=== PATIENT | female | born 2005 | race Caucasian/White ===

== ENCOUNTER 2025-05-22 19:11 | Emergency (ER) | payer OTHER, SELFPAY ==
--- NOTE | 2025-05-22 19:30 | ED_ITS ---
HPI - URI/Sore Throat General Chief Complaint: Upper Respiratory Symptoms Stated Complaint: Sore throat Time Seen by Provider: 05/22/25 22:12 Source: patient Limitations: no limitations History of Present Illness ED Provider: Suma Montalvo PA-C HPI Narrative: 20-year-old female who is otherwise healthy presents with pharyngitis x1 week. Associated left-sided ear pain with subjective fevers. Associated nasal congestion with postnasal drip. Patient states she was seen at outside facility, she was tested for strep throat, the testing was negative. Related Data Previous Rx's ?Medication ?Instructions ?Recorded amoxicillin 500 mg capsule 500 mg PO Q12H #19 caps 10/12 Allergies Allergy/AdvReac Type Severity Reaction Status Date / Time No Known Allergies Allergy Verified 05/22/25 19:33 Review of Systems 2 Review of Systems: Yes all other systems are reviewed and are negative Constitutional: Constitutional: Denies fatigue and Denies fever(s) ENT: Reports sore throat Cardiovascular: Cardiovascular: Denies chest pain and Denies dyspnea Respiratory: Respiratory: Denies cough and Denies dyspnea Endocrine: Endocrine: Denies fatigue [facility] Past Medical History Attestation statement: The following information was validated with the patient. Social History Social History Smoked in Last 30 Days: No Use of substances other than those prescribed or required for medical reasons: No Advance Directives: No Advance Directives Information Provided: No Physical Exam 2 Vital Signs: Vital Signs: Last Vital Signs Temp 98.2 F 05/23/25 00:52 Pulse 101 H 05/23/25 00:52 Resp 16 05/23/25 00:52 BP 120/79 05/23/25 00:52 Pulse Ox 97 05/23/25 00:52 O2 Del Method Room Air 05/23/25 00:52 BMI result Body Mass Index 36.6 Const: Other: Alert Orientation/consciousness: patient oriented x3 HEENT: Other: OP erythematous with the overlying exudate, tonsils are swollen, no trismus no drooling no sublingual fluctuance no swelling inferior to the jawline, the left TM is dull, bulging with the overlying erythema, tragal tenderness noted Neck: Other: Anterior cervical lymphadenopathy Resp: Effort & Inspection: normal respiratory effort Cardio: Other: Normal peripheral perfusion Skin: Other: Warm dry no rash Neuro: General: patient oriented x3, gait normal, no focal motor deficits and CN's II-XI intact bilaterally Psych: Other: Cooperative Course Course Course Narrative: This is a Rapid Medical Exam performed in triage by Lilli Castro PA-C. Full HPI, ROS and PE to be performed by primary ED provider. 20 yo F presenting to the ED c/o left sided throat pain x1 week. states pain is worsening. Was neagtive for strep 4-5 days ago at another hospital - has been taking Tylenol/Motrin w/o relief. +painful swallowing PE: talking in complete sentences. +tachycardic, +b/l tonsilar swelling/erythema and exudates, uvula midline Plan: EKG, labs, viral testing, rapid strep Medications Administered Discontinued Medications Generic Name Dose Route Start Last Admin Trade Name Juwan PRN Reason Stop Dose Admin Amoxicillin 500 mg 05/22/25 22:59 05/22/25 23:10 Amoxicillin 500 Mg Capsule PO 05/22/25 23:00 500 mg ONCE ONE Administration Dexamethasone Sodium Phosphate 10 mg 05/22/25 22:12 05/22/25 22:23 Dexamethasone Sod Phosphate 10 Mg/Ml Vial IVPUSH 05/22/25 22:13 10 mg ONCE ONE Administration Sodium Chloride 1,000 mls @ 999 mls/hr 05/22/25 22:15 05/23/25 00:29 Ns IV 05/22/25 23:15 Infused .Q1H1M CHENTE Infusion Ketorolac Tromethamine 15 mg 05/22/25 22:12 05/22/25 22:23 Ketorolac Tromethamine 15 Mg/Ml Vial IVPUSH 05/22/25 22:13 15 mg ONCE ONE Administration Medical Decision Making Medical Decision Making [facility] Narrative: 20-year-old female who is otherwise healthy presents with pharyngitis x1 week. Associated left-sided ear pain with subjective fevers. Associated nasal congestion with postnasal drip. Patient states she was seen at outside facility, she was tested for strep throat, the testing was negative. No chronic issues History: Per patient I have considered the following differential diagnoses: Strep pharyngitis, viral syndrome, om, OE, serous otitis, PROCESS MECHANIC, RPA, Trent angina, mononucleosis Plan: Viral panel and strep screen ordered from triage, the studies are negative. I will screened for mono. She has at this point a significant tonsillitis, she also has evidence of otitis media, we will be treating her with antibiotic. Giving a dose of Decadron for her swelling of the tonsils. To note there were no exam findings consistent with RPA or PROCESS MECHANIC, certainly not Trent angina. I have independently reviewed the following tests: Labs: Viral panel negative, strep screen negative, mono negative, leukocytosis, not anemic, no electrolyte abnormality, CRP elevated slightly Differential Diagnosis Differential Diagnoses: The differential diagnosis associated with the presentation includes See medical decision-making Admission/Observation Consideration of admission/observation: Escalation of care including admission/observation considered Not applicable Lab Data MDM Lab Attestation statement: I reviewed the patient's lab results. 05/22/25 20:22 05/22/25 20:22 Labs: Lab Results 05/22/25 05/22/25 05/22/25 Range/Units 20:21 20:22 22:45 WBC 14.9 H (4.8-10.8) X10*3/uL RBC 5.21 (4.20-5.50) X10*6/uL Hgb 14.6 (12.0-16.0) g/dl Hct 44.2 (37.0-47.0) % MCV 84.8 (80.0-98.0) fL MCH 28.0 (27.0-33.0) pg MCHC 33.0 (31.0-35.0) g/dl RDW 12.5 (11.0-16.0) % Plt Count 322 (160-400) X10*3/uL MPV 9.2 L (9.4-12.3) fL Immature Gran % (Auto) 0.7 H (0.0-0.4) % Neut % (Auto) 75.8 H (45-73) % Lymph % (Auto) 15.0 L (20-40) % [place] % (Auto) 7.6 (2-11) % Eos % (Auto) 0.7 (0-4) % Baso % (Auto) 0.2 (0-2) % Lymph # (Auto) 2.2 (1.2-4.9) X10*3/uL [place] # (Auto) 1.1 (0.1-1.2) X10*3/uL Eos # (Auto) 0.1 (0.0-0.4) X10*3/uL Baso # (Auto) 0.0 (0.0-0.2) X10*3/uL Abs Immat Gran (auto) 0.10 H (0.00-0.03) X10*3/uL Absolute Neuts (auto) 11.3 H (2.0-8.3) x10*3/uL Absolute Nucleated RBC 0.000 (0.0-0.012) X10*3/uL Nucleated RBC % (auto) 0.0 (0.0-0.2) /100WBC ESR 14 (0-20) MM/HR Sodium 140 (135-145) mmol/L Potassium 4.2 (3.3-5.1) mmol/L Chloride 102 (96-108) mmol/L Carbon Dioxide 27 (22-29) mmol/L Anion Gap 15 (12-20) BUN 16 (9-16) mg/dL Creatinine 0.68 (0.5-1.4) mg/dL Estim Creat Clear Calc 112.2 Estimated GFR > 60 Random Glucose 101 (60-115) mg/dL Calcium 9.9 (8.4-10.2) mg/dL C-Reactive Protein 1.21 H (< or = 0.50) mg/dL COVID-19 (SURYA) Negative (Negative) COVID-19 Clin Com See Note Monoscreen Negative (Negative) Influenza Type A (BERNADINE) Negative (Negative) Influenza Type B (BERNADINE) Negative (Negative) Influenza A & B Note See Note S. pyogenes GrpA BERNADINE Negative (Negative) Discharge Plan Discharge Clinical Impression: Acute left otitis media, Acute tonsillitis Patient Disposition: Home, Self-Care Instructions: Ear Infection (ED), Tonsillitis (ED) Additional Instructions: You were again tested for strep throat, the test was negative. You were also tested for COVID and influenza, the viral panel was negative. We tested you for mononucleosis, that test was negative. You are being treated for tonsillitis, and a left-sided ear infection. See home care instructions. Take the amoxicillin as directed, be sure to complete the course of this antibiotic. Continue to follow up with your primary care provider as needed. Prescriptions: New amoxicillin 500 mg capsule 500 mg PO Q12H Qty: 19 0RF Interventions: ED Discharge Assessment Last Done: 05/23/25 00:52 Discharge Date/Time: 05/23/25 00:53 Print Language: Eritrean
[2025-05-22 19:32] VITALS: BP 147/91; PULSE 132; RESP 20; TEMP 36.7; O2SAT 98; BMI 36.6
--- NOTE | 2025-05-22 19:33 | ECG_ITS ---
Test Reason : CHEST PRESSURE, SOB Blood Pressure : */* mmHG Vent. Rate : 122 BPM Atrial Rate : 122 BPM P-R Int : 138 ms QRS Dur : 72 ms QT Int : 310 ms P-R-T Axes : 52 -9 40 degrees QTcB Int : 441 ms Sinus tachycardia Inferior infarct , age undetermined Cannot rule out Anterior infarct , age undetermined Abnormal ECG No previous ECGs available Referred By: Lilli Castro Electronically Signed By: Figueroa Saunders
[2025-05-22 20:29] LABS: MANUAL DIFF FLAG NO
[2025-05-22 20:36] LABS: Hematocrit 44.2 % (37.0-47.0); Hemoglobin 14.6 g/dl (12.0-16.0); Imm Gran Abs Auto 0.10 X10*3/uL (0.00-0.03); Imm Gran Pct Auto 0.7 % (0.0-0.4); Lymphocytes Absolute Auto 2.2 X10*3/uL (1.2-4.9); Mean Corpuscular HGB Conc 33.0 g/dl (31.0-35.0); Mean Corpuscular Hemoglobin 28.0 pg (27.0-33.0); Mean Corpuscular Volume 84.8 fL (80.0-98.0); NRBC Abs Auto 0.000 X10*3/uL (0.0-0.012); NRBC Pct Auto 0.0 /100WBC (0.0-0.2); Platelet Count 322 X10*3/uL (160-400); Red Blood Count 5.21 X10*6/uL (4.20-5.50); White Blood Count 14.9 X10*3/uL (4.8-10.8)
--- OUTSIDE RECORDS SUMMARY | 2025-05-22 20:41 | XMS_ITS ---
Author Name [facility] Organization Unknown Care Team Organization Name Specialty Phone Email Start Date End Da te [facility] Anita Primary [facility] 05/20/2023 03/08/2024 [facility] Celeste Valencia Primary Care 05/28/20222023
[2025-05-22 20:51] LABS: Anion Gap 15 (12-20); Blood Urea Nitrogen 16 mg/dL (9-16); Calcium 9.9 mg/dL (8.4-10.2); Carbon Dioxide 27 mmol/L (22-29); Chloride 102 mmol/L (96-108); Creatinine Clr Calc Pharmacy 112.2; Estimated Glomerular Filt Rate > 60; Potassium 4.2 mmol/L (3.3-5.1); Sodium 140 mmol/L (135-145)
[2025-05-22 21:17] LABS: IDNOW Serial# 152EDE1D; Influenza B2 Negative (Negative)
[2025-05-22 21:18] LABS: COVID-19 Test Negative (Negative); IDNOW Serial# 16C4AD1C; IDNOW Serial# 6674DD1D; Strep A Nucleic Acid Negative (Negative)
[2025-05-22 21:25] LABS: Erythrocyte Sedimentation Rate 14 MM/HR (0-20)
[2025-05-22 22:14] VITALS: BP 134/80; PULSE 112; RESP 22; TEMP 36.6; O2SAT 97
[2025-05-22 22:21] VITALS: O2SAT 99
[2025-05-23 00:52] VITALS: BP 120/79; PULSE 101; RESP 16; TEMP 36.8; O2SAT 97
== END 2025-05-23 00:53 | disposition home or self-care (01) ==
PROVIDERS: Physician Assistant; Physician Assistant Medical; Emergency Provider Emergency Medicine; PCP Internal Medicine
DX: H66.92 Otitis media, unspecified, left ear (principal); J03.90 Acute tonsillitis, unspecified; H92.02 Otalgia, left ear; R09.81 Nasal congestion; R09.82 Postnasal drip
CPT/HCPCS: 36415; 80048; 85025; 85652; 86140; 86308; 87502; 87635; 87651; 93005; 96361; 96374; 96375; 99284; 99285; J1100; J1885

== ENCOUNTER → 2025-05-22 19:33 | Outpatient (BNV) | payer OTHER, SELFPAY | PROVIDERS: Emergency Provider Emergency Medicine; PCP Internal Medicine; Visit Provider Internal Medicine Cardiovascular Disease | DX: R00.0 Tachycardia, unspecified (principal) | CPT/HCPCS: 93010 ==

== ENCOUNTER 2025-07-13 08:25 | Emergency (ER) | payer OTHER, SELFPAY ==
[2025-07-13 08:28] VITALS: BP 140/66; PULSE 99; RESP 16; TEMP 36.1; O2SAT 97; BMI 36.8
--- NOTE | 2025-07-13 08:38 | ED.ABDPAIN ---
HPI - Abdominal Pain General Chief Complaint: Abdominal Pain Stated Complaint: nausea, abd pain, home preg test + Time Seen by Provider: 07/13/25 08:38 History of Present Illness ED Provider: Riddhi Schroeder NP HPI narrative: 20-year-old female patient with a history of BV infections or presents to the ED with chief complaint of nausea ongoing for 5 days. Denies any vomiting episodes. Reports she gets intermittent generalized upper abdominal discomfort with nausea. She went to [facility] yesterday, but left without being seen per her report. Denies any chest pain or pressure, shortness of breath. Endorsing subjective fever without chills. No urinary complaints including dysuria, hematuria, urgency or frequency. Some report of decreased urination, believes this is due to decreased PO intake secondary to nausea. No vaginal bleeding. Reporting some discharge, though relates this to a history of BV. Is sexually active, reports that she is trying to get . She reports taking a home test on 07/10, which was positive. No pelvic pain or pressure. Currently not followed by an OBGYN; but will schedule an appointment. LMP 06/14/25. Related Data Previous Rx's ?Medication ?Instructions ?Recorded amoxicillin 500 mg capsule 500 mg PO Q12H #19 caps 05/23/25 Allergies Allergy/AdvReac Type Severity Reaction Status Date / Time No Known Allergies Allergy Verified 07/13/25 08:33 Review of Systems Review of Systems ROS is otherwise negative unless mentioned in HPI. [facility] Social History Social History Advance Directives: No Advance Directives Information Provided: No Physical Exam ED Exam Exam: Nursing notes and vital signs reviewed. Constitutional: Well-appearing, NAD. Alert. Oriented X3. Eyes: EOMI. ENT: Pharynx normal. Neck: Normal inspection. Neck supple. CVS: Normal heart rate and rhythm. Pulses normal. Respiratory: No respiratory distress. Breath sounds normal. Abdomen: Soft, nontender, nondistended. Skin: Skin warm and dry. Normal skin color. Extremities: No lower extremity edema. Neuro: Oriented X 3. No motor deficit. Vital Signs: Vital Signs - 24 hr 07/13/25 08:28 Temperature 97 F Pulse Rate 99 Respiratory Rate 16 Blood Pressure 140/66 H Pulse Oximetry 97 Oxygen Delivery Method Room Air BMI result Body Mass Index 36.8 Medical Decision Making Medical Decision Making MDM Narrative: She appears well, answering all questions appropriately. Reports coming to the ED for some nausea, ongoing for about 5 days, she was at [facility] ER yesterday but was not seen and left. Reporting that she also had a positive home test. She has no pelvic pain or urinary complaints. Reports she feels she is urinating less frequently, believes this is secondary to decreased oral intake for persistent nausea. Has never been previously. Benign abdominal exam. No indication for pelvic at this time. Given lack of pelvic pain or vaginal bleeding, no indication for transvaginal ultrasound. I do not suspect an ectopic . We will proceed with plan for antiemetic, fluid bolus, lab work, UA, hCG and reassess. 10:55 AM-- Lab work overall reassuring. HCG quant is elevated at 695, confirming . Urinalysis shows small leukocytes, 11-20 white blood cells, 1+ bacteria. At this time, she has no urinary complaints and would like to wait for a urine culture to return. We will be contact via phone with only positive results, which I explained to her. Additionally, the swab is positive for a yeast infection. Given she is she can not have fluconazole, recommended [id number] Monistat. Viral panel is negative. Intrauterine was not confirmed via US as the patient does not require an US while in the ED in the absence of any concerning symptoms. We discussed this extensively. She, her aunt who is now at bedside, are agreeable with discharge plan to follow up outpatient with OBGYN in the next 1 week. I have recommended an outpatient ultrasound within the next several weeks, and repeat HCG as needed. She feels much better after antiemetic. I recommended [id number] Unisom, Benadryl as needed. If she develops any worsening complaints at any time, she was given strict return precautions to the ED, for which she is agreeable. Differential Diagnosis Differential Diagnoses: The differential diagnosis associated with the presentation includes , ectopic , bacterial vaginosis, STI, cystitis Admission/Observation Consideration of admission/observation: Escalation of care including admission/observation considered (Not indicated. ) Lab Data MDM Lab Attestation statement: I reviewed the patient's lab results. (Reassuring overall.) 07/13/25 08:46 07/13/25 08:46 Labs: Lab Results 07/13/25 07/13/2525 Range/Units 08:46 09:09 09:25 WBC 9.9 (4.8-10.8) X10*3/uL RBC 4.81 (4.20-5.50) X10*6/uL Hgb 13.8 (12.0-16.0) g/dl Hct 41.3 (37.0-47.0) % MCV 85.9 (80.0-98.0) fL MCH 28.7 (27.0-33.0) pg MCHC 33.4 (31.0-35.0) g/dl RDW 13.8 (11.0-16.0) % Plt Count 318 (160-400) X10*3/uL MPV 9.0 L (9.4-12.3) fL Immature Gran % (Auto) 0.2 (0.0-0.4) % Neut % (Auto) 72.0 (45-73) % Lymph % (Auto) 17.2 L (20-40) % [place] % (Auto) 9.8 (2-11) % Eos % (Auto) 0.4 (0-4) % Baso % (Auto) 0.4 (0-2) % Lymph # (Auto) 1.7 (1.2-4.9) X10*3/uL [place] # (Auto) 1.0 (0.1-1.2) X10*3/uL Eos # (Auto) 0.0 (0.0-0.4) X10*3/uL Baso # (Auto) 0.0 (0.0-0.2) X10*3/uL Abs Immat Gran (auto) 0.02 (0.00-0.03) X10*3/uL Absolute Neuts (auto) 7.1 (2.0-8.3) x10*3/uL Absolute Nucleated RBC 0.000 (0.0-0.012) X10*3/uL Nucleated RBC % (auto) 0.0 (0.0-0.2) /100WBC Sodium 139 (135-145) mmol/L Potassium 3.9 (3.3-5.1) mmol/L Chloride 108 (96-108) mmol/L Carbon Dioxide 22 (22-29) mmol/L Anion Gap 13 (12-20) BUN 7 L (9-16) mg/dL Creatinine 0.61 (0.5-1.4) mg/dL Estim Creat Clear Calc 125.4 Estimated GFR > 60 Random Glucose 92 (60-115) mg/dL Calcium 9.3 D (8.4-10.2) mg/dL Beta HCG, Quant 695 mIU/mL Urine Color Yellow Urine Appearance Cloudy Urine pH 6.0 (5.0-9.0) Ur Specific [place] 1.025 (1.005-1.025) Urine Protein Negative (Neg-Trace) mg/dL Urine Glucose (UA) Negative (Negative) mg/dL Urine Ketones Trace (Negative) mg/dL Urine Blood Negative (Negative) Urine Nitrite Negative (Negative) Ur Leukocyte Esterase Small (1+) H (Negative) Urine RBC 0-2 (0-2) /HPF Urine WBC 11-20 H (0-5) /HPF Ur Squamous Epith Cells 11-20 (0-2) /HPF Urine Bacteria 1+ (None Seen) Hyaline Casts 0-2 (0-2) /LPF Urine Test POSITIVE H (NEGATIVE) Influenza Type A (PCR) NEGATIVE (Negative) Influenza Type B (PCR) NEGATIVE (Negative) RSV RNA Qual (PCR) NEGATIVE (Negative) SARS-CoV-2 RNA (RT-PCR) NEGATIVE (Negative) T. vaginalis (PCR) NOT DETECTED (Not Detect) Bact vaginosis (PCR) NEGATIVE (Negative) C. krusei/glabrata (PCR) NOT DETECTED (Not Detect) Mikayla group (PCR) DETECTED A (Not Detect) Independent Historian Clinical information obtained from an independent historian. History obtained from or confirmed by: Parent and Other (Aunt) External Record Review External record reviewed: Outside ED record Prescription Management I considered prescription management with: Antibiotic Patient would like to wait for urine culture results. Abx for suspected UTI deferred. Chronic Conditions None Social Determinants Patient?s care significantly limited by Social Determinants of Health including: Problems related to primary support group Medications Administered Discontinued Medications Generic Name Dose Route Start Last Admin Trade Name Freq PRN Reason Stop Dose Admin Diphenhydramine HCl 12.5 mg 07/13/25 09:26 07/13/25 09:39 Diphenhydramine Hcl 50 Mg/Ml Vial IVPUSH 12/24/25 09:27 12.5 mg ONCE ONE Administration Sodium Chloride 1,000 mls @ 999 mls/hr 07/13/25 09:26 07/13/25 09:40 Ns IV 07/13/25 10:26 999 mls/hr .Q1H1M ONE Administration Discharge Plan Discharge Clinical Impression: Elevated serum hCG, Nausea Patient Disposition: Home, Self-Care Instructions: Acute Nausea and Vomiting (DC), Hyperemesis Gravidarum (ED) Additional Instructions: As we discussed, you were seen in the ER today for evaluation of nausea in the setting of a positive home test. Today, your test in the ER was also positive. Your hCG quant, the number that associates with your , is elevated at 695. Your lab work was overall reassuring. The urine sample shows some bacteria. At this time, you have deferred antibiotics. If you develop any urinary tract symptoms that include burning, going to the bathroom frequently urgently, or blood in the urine, please return to the ED for additional evaluation. We will also send a urine culture, and if the culture returns positive we will contact you via phone over the course of the next several days and initiate antibiotic treatment at that time. Additionally, your vaginal swab was positive for yeast. We want you to take [id number] Monistat. For your nausea in , we do recommend that you take Unisom, or Benadryl as needed. These medications may cause drowsiness. Please follow up with OBGYN within the next several weeks, as they will want to perform an outpatient ultrasound to confirm that your is within the uterus. If at anytime you develop any pelvic pain, vaginal bleeding, fevers, chills, etc. please return back to the ED immediately for additional assessment. Prescriptions: No Action amoxicillin 500 mg capsule 500 mg PO Q12H Qty: 19 0RF Referrals: [facility] [Provider Group] Print Language: Arabic
[2025-07-13 08:51] LABS: MANUAL DIFF FLAG NO
[2025-07-13 08:55] LABS: Appearance Urine Cloudy; Glucose Urine UA Negative (Negative); PH 6.0 (5.0-9.0); Specific Gravity - Urine 1.025 (1.005-1.025); UMIC TRIGGER UACC YES
[2025-07-13 08:59] LABS: Hematocrit 41.3 % (37.0-47.0); Hemoglobin 13.8 g/dl (12.0-16.0); Imm Gran Abs Auto 0.02 X10*3/uL (0.00-0.03); Imm Gran Pct Auto 0.2 % (0.0-0.4); Lymphocytes Absolute Auto 1.7 X10*3/uL (1.2-4.9); Mean Corpuscular HGB Conc 33.4 g/dl (31.0-35.0); Mean Corpuscular Hemoglobin 28.7 pg (27.0-33.0); Mean Corpuscular Volume 85.9 fL (80.0-98.0); NRBC Abs Auto 0.000 X10*3/uL (0.0-0.012); NRBC Pct Auto 0.0 /100WBC (0.0-0.2); Platelet Count 318 X10*3/uL (160-400); Red Blood Count 4.81 X10*6/uL (4.20-5.50); White Blood Count 9.9 X10*3/uL (4.8-10.8)
[2025-07-13 09:03] LABS: UACC Culture Trigger YES
[2025-07-13 09:04] LABS: UPreg QC Valid YES
--- OUTSIDE RECORDS SUMMARY | 2025-07-13 09:14 | XMS_ITS | Encounter Summary ---
Author Organization [facility] Prior to 05/21/2024 Address [address] [place] [address] Care Team Providers Care Hr Director Name Role Phone Janes Lopez MD Primary Care Provider Celeste Jones MD Primary Care Provider [phone] Encounter Details Date Type Department Care Team Description 03/15/2015 Water Commissioner Report Medical Records [address] [place] [id number] Johnny Cheung MD Social History Tobacco Use Types Packs/Day Years Used Date Smoking Tobacco: Never Smokeless Tobacco: Never Comments:mom and dad smoke i nside house Alcohol Use Standard Drinks/Week Comments Not Asked 0 (1 standard drink = 0.6 oz pur e alcohol) Sex Assigned at Date Recorded Not on file Job Start Date Occupation Industry Not on file Not on file Not on file documented as of this encounter Plan of Treatment Not on file documented as of this encounter Visit Diagnoses Not on filedocumented in this encounter Care Teams Hr Director Relationship Specialty Start Date End Date Janes Lopez MD PCP - General 07/25/09 10/29/21 Celeste Valencia MD [address] [place] [address] [id number] PCP - General Pediatrics 10/30/21 documented as of this encounter
--- OUTSIDE RECORDS SUMMARY | 2025-07-13 09:14 | XMS_ITS | Encounter Summary ---
Author Organization [facility] Prior to 05/21/2024 Address [address] [place] [address] Care Team Providers Care Powerhouse Engineer Name Role Phone Janes Lopez MD Primary Care Provider UnaCeleste Akins MD Primary Care Provider [phone] Encounter Details Date Type Department Care Team Description 06/22/2012 Telephone Pediatrics - [address] [address] Janes Lopez MD Social History Tobacco Use Types Packs/Day [...] on filedocumented in this encounter Care Teams Powerhouse Engineer Relationship Specialty Start Date End Date Janes Lopez MD PCP - General 07/25/09 10/29/21 Celeste Valencia MD [address] [place] [id number] PCP - General Pediatrics 10/30/21 documented as of this encounter
--- OUTSIDE RECORDS SUMMARY | 2025-07-13 09:14 | XMS_ITS | Encounter Summary ---
Author Organization [facility] Prior to 05/21/2024 Address [address] [place] [address] Care Team Providers Care Induction Coordination Power Engineer Name Role Phone Janes Lopez MD Primary Care Provider Celeste Jones MD Primary Care Provider [phone] Encounter Details Date Type Department Care Team Description 12/27/2013 Abstract Medical Records [address] [place] [address] Abstract, Provider Social History Tobacco Use Types Packs/Day Years [...] on filedocumented in this encounter Care Teams Induction Coordination Power Engineer Relationship Specialty Start Date End Date Janes Lopez MD PCP - General 07/25/09 10/29/21 Celeste Valencia MD [address] [place] [address] [id number] PCP - General Pediatrics 10/30/21 documented as of this encounter
--- OUTSIDE RECORDS SUMMARY | 2025-07-13 09:14 | XMS_ITS | Encounter Summary ---
Author Organization [facility] Prior to 05/21/2024 Address [address] [place] [address] Care Team Providers Care Industrial Technology Education Teacher Name Role Phone Janes Lopez MD Primary Care Provider UnaCeleste Akins MD Primary Care Provider [phone] Encounter Details Date Type Department Care Team Description 03/31/2015 Hospital Medical Records [address] [place] [address] Johnny Cheung MD Social History Tobacco Use [...] on filedocumented in this encounter Care Teams Industrial Technology Education Teacher Relationship Specialty Start Date End Date Janes Lopez MD PCP - General 07/25/09 10/29/21 Celeste Valencia MD [address] [place] [address] [id number] PCP - General Pediatrics 10/30/21 documented as of this encounter
--- OUTSIDE RECORDS SUMMARY | 2025-07-13 09:14 | XMS_ITS | Encounter Summary ---
Author Organization [facility] Prior to 05/21/2024 Address [address] [place] [address] Care Team Providers Care Neon Sign Erector Name Role Phone Janes Lopez MD Primary Care Provider UnaCeleste Akins MD Primary Care Provider [phone] Encounter Details Date Type Department Care Team Description 01/15/2013 Night Triage Doc Medical Records [address] [place] [id number] Abstract, Provider Social History Tobacco Use Types [...] on filedocumented in this encounter Care Teams Neon Sign Erector Relationship Specialty Start Date End Date Janes Lopez MD PCP - General 07/25/09 10/29/21 Celeste Valencia MD [address] [place] [address] [id number] PCP - General Pediatrics 10/30/21 documented as of this encounter
--- OUTSIDE RECORDS SUMMARY | 2025-07-13 09:14 | XMS_ITS | Encounter Summary ---
Author Organization [facility] Prior to 05/21/2024 Address [address] [place] [address] Care Team Providers Care Pigment Presser Name Role Phone Janes Lopez MD Primary Care Provider Celeste Jones MD Primary Care Provider [phone] Encounter Details Date Type Department Care Team Description 06/24/2012 Hospital Medical Records [address] [place] [address] Anne Del Rosario Social History Tobacco Use Types Packs/Day Years [...] on filedocumented in this encounter Care Teams Pigment Presser Relationship Specialty Start Date End Date Janes Lopez MD PCP - General 07/25/09 10/29/21 Celeste Valencia MD [address] [place] [address] [id number] PCP - General Pediatrics 10/30/21 documented as of this encounter
[2025-07-13 09:15] LABS: Anion Gap 13 (12-20); Blood Urea Nitrogen 7 mg/dL (9-16); Calcium 9.3 mg/dL (8.4-10.2); Carbon Dioxide 22 mmol/L (22-29); Chloride 108 mmol/L (96-108); Creatinine Clr Calc Pharmacy 125.4; Estimated Glomerular Filt Rate > 60; Potassium 3.9 mmol/L (3.3-5.1); Sodium 139 mmol/L (135-145)
[2025-07-13 10:03] LABS: Resp Syncy Virus RNA Qual PCR NEGATIVE (Negative); SARS COV2 PCR INHOUSE NEGATIVE (Negative)
[2025-07-13 10:31] LABS: Bacterial Vaginosis PCR NEGATIVE (Negative); Candida Group PCR DETECTED (Not Detect); Candida glab krusei PCR NOT DETECTED (Not Detect); Trichomonas vaginalis PCR NOT DETECTED (Not Detect)
--- NOTE | 2025-07-13 10:33 | PC.NURSE ---
Patient out of bed to bathroom, ambulates with steady gait. + test & HCG Quantitative. Reports decreased nausea since Benadryl administration. Was also given an alcohol swab to sniff/smell to alleviate nausea, with positive effect. Visitor at bedside. Patient does not have OBGYN provider at this time.
[2025-07-13 11:02] LABS: CT PCR NOT DETECTED (Not Detect.); NG PCR NOT DETECTED (Not Detect.)
[2025-07-13 11:27] VITALS: BP 140/66; PULSE 99; RESP 16; TEMP 36.1; O2SAT 97
--- NOTE | 2025-07-25 09:07 | PC.NURSE ---
Normal Saline 0.9% 1L infusion completed on 07/13/2025 at 10:26AM, per orders.
== END 2025-07-13 11:27 | disposition home or self-care (01) ==
PROVIDERS: Nurse Practitioner; Emergency Provider Emergency Medicine
DX: O26.891 Other specified pregnancy related conditions, first trimester (principal); R11.0 Nausea; O98.811 Other maternal infectious and parasitic diseases complicating pregnancy, first trimester; B37.9 Candidiasis, unspecified; Z3A.00 Weeks of gestation of pregnancy not specified
CPT/HCPCS: 36415; 80048; 81001; 81003; 81025; 81515; 84702; 85025; 87086; 87491; 87591; 87637; 96374; 99283; 99284; J1200